=== PATIENT | female | born 1995 | race Two or more races ===

== ENCOUNTER 2023-05-29 19:16 | Emergency (ER) | payer OTHER ==
[~2023-05-29] VITALS: Ht 167.6 cm; Wt 63.5 kg
== END 2023-05-29 20:50 | disposition home or self-care (01) ==
LOC: ER 19:17
DX: T78.49XA Other allergy, initial encounter (principal); X58.XXXA Exposure to other specified factors, initial encounter; Z91.013 Allergy to seafood

== ENCOUNTER 2025-02-24 00:21 | Emergency (ER) | payer OTHER ==
[~2025-02-24] VITALS: Ht 170.2 cm; Wt 65.3 kg
[2025-02-24] MEDS ORDERED: METOCLOPRAMIDE HCL 5 MG/ML VIAL IM STA (02:19)
[2025-02-24] MEDS ORDERED: 0.9 % SODIUM CHLORIDE 500 ML IV STA (02:20)
[2025-02-24] MEDS ORDERED: ONDANSETRON HCL 2 MG/ML VIAL ONE (02:21)
[2025-02-24] MEDS ORDERED: ONDANSETRON HCL 2 MG/ML VIAL IV STA (02:21)
[2025-02-24] MEDS ORDERED: METOCLOPRAMIDE HCL 5 MG/ML VIAL ONE (02:21)
[2025-02-24] MEDS ORDERED: FAMOtidine 10 MG/ML (4ML VIAL) IV PUSH STA (02:21)
[2025-02-24] MEDS ORDERED: FAMOTIDINE/PF 20 MG/2 ML VIAL ONE (02:22)
[2025-02-24 03:36] LABS: BASO % 0.4 % (0.1-1.2); EOS # 0.35 (0.04-0.54); EOS % 4.9 % (0.7-7.0); LYMPH # 1.44 (1.18-3.74); LYMPH % 20.0 % (19.3-53.1); MEAN PLATELET VOLUME 10.50 fl (9.4-12.4); MONO # 0.58 (0.24-0.82); MONO % 8.0 % (4.7-12.5); NEUT # 4.77 (1.56-6.13); NEUT % 66.1 % (34.0-71.1); RED CELL DISTRIBUTION WIDTH 13.6 % (11.6-14.4)
[2025-02-24 03:57] LABS: BUN CREA RATIO 13.0 (7.0-25.0); CREATININE SERUM 0.53 mg/dL (0.55-1.02); GFR 136.38; GLUCOSE FASTING 87.0 mg/dL (65-100); OSMOLALITY SERUM 282.0 MOSM/KG (275-295)
== END 2025-02-24 04:43 | disposition home or self-care (01) ==
LOC: ER 00:21
DX: K29.70 Gastritis, unspecified, without bleeding (principal); R11.0 Nausea; R10.9 Unspecified abdominal pain; Z91.013 Allergy to seafood